=== PATIENT | male | born 2000 | race Caucasian/White ===

== ENCOUNTER 2021-08-04 19:58 | Emergency (ER) | payer OTHER ==
[2021-08-04 20:11] VITALS: BP 133/60; PULSE 68; TEMP 98.4; BMI 21.0
== END 2021-08-04 20:54 | disposition home or self-care (01) ==
LOC: JER 19:58
DX: S60.221A Contusion of right hand, initial encounter (principal); W22.8XXA Striking against or struck by other objects, initial encounter
CPT/HCPCS: 73110-TC-RT-FY; 73130-TC-RT-FY; 99283-25